=== PATIENT | male | born 1995 | race Caucasian/White ===

== ENCOUNTER 2018-12-06 16:12 | Emergency (ER) | payer BC ==
--- NOTE | 2018-12-06 16:26 | Emergency Department Record ---
History of Present Illness - General Chief Complaint: Mental health evaluation Stated Complaint: PSYCH EVAL Time Seen by Provider: 12/06/18 16:20 Source: Patient, Police Mode of Arrival: Ambulatory Limitations: No limitations - History of Present Illness Initial Comments: 23 yo male presents with law enforcement. He states he has been diagnosed with judson in the past. He states he is compliant with his medications. The officer accompanying the patient reports the patient was talking rapidly, appeared to rapidly change his thoughts, spoke of seeing or talking to god. The patient denies being suicidal. He did states his name was Obdulio Dyson on arrival. The patient has a diagnosis of Bipolar with schizophrenia per the mother. He has multiple admissions with methodist delusions. He acts out, states he is Obdulio Dyson or a white supremacist. He states he wants to kill demons. He was admitted last week. His symptoms stated quickly after getting home. Historically if he drinks or does drugs this will spiral him into episodes of the delusions. MD Complaint: Other -: Hour(s) Associated Psychiatric Symptoms: Delusions, Racing thoughts History of same: Yes Quality: Other Improves With: None Associated Symptoms: Denies other symptoms Treatments Prior to Arrival: Physical restraints (Presents in handcuffs) - [place] Coma Scale Eye Response: (4) Open spontaneously Motor Response: (6) Obeys commands Verbal Response: (5) Oriented [place] Total: 15 - Related Data Home Medications Medication Instructions Recorded Confirmed Last Taken Divalproex Sodium [Depakote] 500 mg PO BID 12/06/18 12/06/18 Unknown Escitalopram Oxalate [Lexapro] 20 mg PO DAILY 12/06/18 12/06/18 Unknown Allergies Allergy/AdvReac Type Severity Reaction Status Date / Time No Known Drug Allergies Allergy Verified 12/06/18 19:02 Review of Systems Constitutional: Denies: Chills, Fever, Malaise, Night sweats, Weakness Eyes: Denies: Eye discharge, Eye pain, Photophobia, Vision change ENT: Denies: Congestion, Throat pain Respiratory: Denies: Cough, Dyspnea, Hemoptysis, Stridor, Wheezes Cardiovascular: Denies: Chest pain, Palpitations, Syncope Endocrine: Denies: Fatigue Gastrointestinal: Denies: Abdominal pain, Diarrhea, Nausea, Vomiting Genitourinary: Denies: Dysuria, Frequency, Hematuria Musculoskeletal: Denies: Arthralgia, Back pain, Myalgia, Neck pain Skin: Denies: Bruising, Change in color, Rash Neurological: Denies: Headache, Numbness, Weakness Psychiatric: Reports: Other (Delusions he is Kiel). Denies: Auditory hallucinations, Homicidal thoughts, Suicidal thoughts, Visual hallucinations Hematological/Lymphatic: Denies: Easy bleeding, Easy bruising, Swollen glands Physical Exam - General General Appearance: Alert, Oriented x3, Cooperative, No acute distress Limitations: No limitations - Head Head exam: Atraumatic, Normocephalic, Normal inspection - Eye Eye exam: Normal appearance, PERRL. negative: Conjunctival injection, Scleral icterus - ENT ENT exam: Normal exam Ear exam: Normal external inspection Nasal Exam: Normal inspection Mouth exam: Normal external inspection - Neck Neck exam: Normal inspection - Respiratory Respiratory exam: Normal lung sounds bilaterally. negative: Respiratory distress - Cardiovascular Cardiovascular Exam: Regular rate, Normal rhythm, Normal heart sounds - GI/Abdominal GI/Abdominal exam: Soft. negative: Tenderness - Neurological Neurological exam: Alert, Normal gait. negative: Altered, Motor sensory deficit - Psychiatric Psychiatric exam: Normal affect, Normal mood, Other (Calm at the time of initial interview). negative: Agitated, Anxious, Depressed, Flat affect, Homicidal ideation, Manic, Suicidal ideation - Skin Skin exam: Dry, Intact, Normal color, Warm Course - Reevaluation(s) Reevaluation #1: 12/06/18 17:14 The mother filed an application due to the delusions of being Kiel, attacking demons 12/06/18 17:29 The labs were reviewed The toxicology screens are negative The alcohol is negative Due to his delusions of being Kiel without insight he is a danger to self and possibly others. A Certification for psychiatric evaluation was completed The patient was advised of the process He is medically cleared 12/06/18 18:43 The patient was accepted to [facility] for admission 12/06/18 18:54 The patient has been calm until now. He has had an outburst of brief yelling then calms. He will be given Zyprexa now and monitor for medication effect prior to transfer. Medical Decision Making - Lab Data Result diagrams: 12/06/18 16:45 12/06/18 16:45 Disposition Disposition: Transfer Clinical Impression: Bipolar disorder, Delusions Disposition: Psychiatric Hospital Transfer To: [facility] Reason For Transfer: Delusions, Psychosis Accepting Physician: [facility] Time Discussed w/Accepting Physician: 18:30 Condition: (2) Stable Forms: Patient Portal Access Time of Disposition: 17:31 Quality - Quality Measures Quality Measures: N/A - Blood Pressure Screening Does Patient Have Any of the Following: No Blood Pressure Classification: Hypertensive Reading Systolic Measurement: 162 Diastolic Measurement: 78 Screening for High Blood Pressure: < Pre-Hypertensive BP, F/U Documented > [ G8950] Pre-Hypertensive Follow-up Interventions: Referral to alternative/primary care provider.
[2018-12-06 16:52] LABS: HEMOGLOBIN 16.8 gm/dl (14.0-18.0); RED BLOOD COUNT 5.33 M/uL (4.40-5.70); WHITE BLOOD COUNT W/O DIFF 13.5 K/uL (4.2-12.2)
[2018-12-06 16:53] LABS: BASO % 0.2 % (0-6); GRAN % 77.7 % (47-80); LYMPH % 14.9 % (16-45); MEAN CELL VOLUME 90.1 fl (81-97); MEAN CORPUSCULAR HEMOGLOBIN 31.5 pg (27-33); MEAN PLATELET VOLUME 10.2 fl (7.4-10.4); MONO % 6.2 % (0-9); PLATELET COUNT 301 K/uL (130-400); RED CELL DISTRIBUTION WIDTH 12.6 % (11.5-14.5)
[2018-12-06 17:10] LABS: BLOOD UREA NITROGEN 19 mg/dL (6-20); CREATININE 0.7 mg/dL (0.7-1.2); EST GLOMERULAR FILTRATION RATE > 60 mL/min; TOTAL PROTEIN 7.6 g/dL (6.6-8.7)
[2018-12-06 17:11] LABS: GLUCOSE,RANDOM 147 mg/dL (74-109)
[2018-12-06 17:16] LABS: ACETAMINOPHEN < 5.0 ug/mL (10.0-30.0); ALB/GLOB RATIO 1.4 (1.1-1.8); ALBUMIN 4.4 g/dL (4.0-5.0); ALKALINE PHOSPHATASE 80 U/L (40-129); ALT/SGPT 33 U/L (<41); AST/SGOT 20 U/L (10.0-50.0); SALICYLATE < 0.3 mg/dL (2.8-20)
[2018-12-06 17:20] LABS: AMPHETAMINE SCREEN URINE NOT DETECTED; BARBITURATE SCREEN URINE NOT DETECTED; BENZODIAZEPINE SCREEN URINE NOT DETECTED; COCAINE SCREEN URINE NOT DETECTED; METHADONE SCREEN URINE NOT DETECTED; METHAMPHETAMINE SCREEN NOT DETECTED; OPIATE SCREEN URINE NOT DETECTED; OXYCODONE SCREEN URINE NOT DETECTED; PHENCYCLIDINE SCREEN URINE NOT DETECTED; PROPOXYPHENE SCREEN URINE NOT DETECTED; THC SCREEN URINE NOT DETECTED; TRICYCLIC ANTIDEPRESSANT SCRN NOT DETECTED
[2018-12-06 17:25] LABS: THYROID STIMULATING HORMONE 0.58 uIU/mL (0.270-4.20)
[2018-12-06] MEDS ORDERED: LORAZEPAM 0.5 MG TABLET PO ONE (18:52)
[2018-12-06] MEDS ORDERED: OLANZAPINE 5MG TABLET PO SCH (19:00)
[2018-12-06] MEDS: OLANZAPINE 5MG TABLET PO ONE (19:03)
== END 2018-12-06 19:34 ==
LOC: ER 16:12
DX: F31.2 Bipolar disorder, current episode manic severe with psychotic features (principal)
CPT/HCPCS: 99285 ×2; 85025; 80053; 84443; 80305; 80164; G0480 ×3; 80320; 80329

== ENCOUNTER 2019-08-17 21:44 | Emergency (ER) | payer BC ==
--- NOTE | 2019-08-17 21:56 | Emergency Department Record ---
History of Present Illness - General Chief Complaint: Suicidal thoughts Stated Complaint: SUICIDAL THOUGHTS Time Seen by Provider: 08/17/19 21:45 Source: Patient Mode of Arrival: Ambulatory Limitations: No limitations - History of Present Illness Initial Comments: 23 yo male presents to ED for evaluation of thoughts of self harm as well as thoughts of wanting to harm others. Patient denies specific plan. Patient reports "I need to get my life figured out, and my medications aren't working". Patient does report a history of Bipolar disorder treated with Zyprexa, does have a psychiatrist that he has not seen in several months. Patient denies self harm or ingestion on examination. MD Complaint: Suicidal ideation -: Days(s) Associated Psychiatric Symptoms: Homicidal ideation, Suicidal ideation History of same: Yes Quality: Constant Improves With: None Worsens With: None Associated Symptoms: Denies other symptoms Treatments Prior to Arrival: None - [place] Coma Scale Eye Response: (4) Open spontaneously Motor Response: (6) Obeys commands Verbal Response: (5) Oriented [place] Total: 15 - Related Data Home Medications Medication Instructions Recorded Confirmed Last Taken Olanzapine [Zyprexa] 20 mg PO DAILY 08/17/19 08/17/19 08/17/19 Allergies Allergy/AdvReac Type Severity Reaction Status Date / Time No Known Drug Allergies Allergy Verified 12/06/18 19:02 Review of Systems Constitutional: Denies: Chills, Fever, Malaise, Night sweats Eyes: Denies: Eye discharge, Eye pain ENT: Denies: Congestion, Ear pain, Epistaxis Respiratory: Denies: Cough, Dyspnea Cardiovascular: Denies: Chest pain, Dyspnea on exertion Endocrine: Denies: Fatigue, Heat or cold intolerance Gastrointestinal: Denies: Abdominal pain, Nausea, Vomiting Genitourinary: Denies: Incontinence, Retention Musculoskeletal: Denies: Arthralgia, Back pain Skin: Denies: Bruising, Change in color Neurological: Denies: Abnormal gait, Confusion, Headache, Seizure Psychiatric: Reports: Homicidal thoughts, Suicidal thoughts. Denies: Anxiety, Auditory hallucinations Hematological/Lymphatic: Denies: Anemia, Blood Clots Past Medical History - SOCIAL HISTORY Smoking Status: Former smoker Drug Use: None - RESPIRATORY Hx Respiratory Disorders: No - CARDIOVASCULAR Hx Cardio Disorders: No - NEURO Hx Neuro Disorders: No - GI Hx GI Disorders: No - Hx Genitourinary Disorders: No - ENDOCRINE Hx Endocrine Disorders: No - MUSCULOSKELETAL Hx Musculoskeletal Disorders: No - PSYCH Hx Psych Problems: Yes Hx Depression: Yes ([place]) - HEMATOLOGY/ONCOLOGY Hx Hematology/Oncology Disorders: No Physical Exam - General General Appearance: Alert, Oriented x3, Cooperative, No acute distress Limitations: No limitations - Head Head exam: Atraumatic, Normocephalic, Normal inspection Head exam detail: negative: Abrasion, Contusion, Villaloobs's sign, General tenderness, Hematoma, Laceration - Eye Eye exam: Normal appearance. negative: Conjunctival injection, Periorbital swelling, Periorbital tenderness, Scleral icterus - ENT Ear exam: negative: Auricular hematoma, Auricular trauma Nasal Exam: negative: Active bleeding, Discharge, Dried blood, Foreign body Mouth exam: negative: Drooling, Laceration, Muffled voice, Tongue elevation - Neck Neck exam: Normal inspection. negative: Meningismus, Tenderness - Respiratory Respiratory exam: Normal lung sounds bilaterally. negative: Rales, Respiratory distress, Rhonchi, Stridor - Cardiovascular Cardiovascular Exam: Regular rate, Normal rhythm, Normal heart sounds - GI/Abdominal GI/Abdominal exam: Soft. negative: Rebound, Rigid, Tenderness - Rectal Rectal exam: Deferred - exam: Deferred - Extremities Extremities exam: Normal inspection. negative: Pedal edema, Tenderness - Back Back exam: Denies: CVA tenderness (R), CVA tenderness (L) - Neurological Neurological exam: Alert, Normal gait, Oriented X3 - Psychiatric Psychiatric exam: Depressed, Flat affect, Homicidal ideation, Suicidal ideation - Skin Skin exam: Normal color. negative: Abrasion Type of lesion: negative: abrasion Course - Reevaluation(s) Reevaluation #1: 08/17/19 21:55 Patient was seen and examined Will initiate medical clearance for psychiatric placement. Reevaluation #2: 08/17/19 22:38 Laboratory studies were reviewed and appear grossly unremarkable for an acute process. UA pending at this time. Reevaluation #3: 08/17/19 23:00 UDS positive for cannibis UDS are otherwise negative. Will initiate transfer for psychiatric evaluation. Reevaluation #4: 08/18/19 05:40 Multiple psychiatric facilities have been contacted, awaiting to hear back from several in the morning as many facilities are currently full. Patient is sleeping on re-examination at this time. Reevaluation #5: 08/18/19 06:12 Patient has been accepted to [facility], able to be transported around 10:30 this morning. 08/18/19 07:19 Case was discussed with oncoming provider, will assume care pending transfer isabella und 10:30 this morning. Medical Decision Making - Lab Data Result diagrams: 08/17/19 22:00 08/17/19 22:00 Disposition Disposition: Transfer Clinical Impression: Suicidal ideation, Bipolar 1 disorder Disposition: Psychiatric Hospital Transfer To: [facility] Reason For Transfer: Psychiatric evaluation Accepting Physician: Nelson Time Discussed w/Accepting Physician: 06:12 Condition: (2) Stable Forms: Patient Portal Access Time of Disposition: 06:13 Quality - Quality Measures Quality Measures: N/A - Blood Pressure Screening Does Patient Have Any of the Following: No Blood Pressure Classification: Pre-Hypertensive BP Reading Systolic Measurement: 125 Diastolic Measurement: 81 Screening for High Blood Pressure: < Pre-Hypertensive BP, F/U Documented > [G8950] Pre-Hypertensive Follow-up Interventions: Referral to alternative/primary care provider.
[2019-08-17 22:16] LABS: ABSOLUTE NEUTROPHIL COUNT 4.56; BASO % 0.2 % (0-6); EOS % 2.2 % (0-6); GRAN % 52.2 % (47-80); HEMATOCRIT 46.9 % (42.0-52.0); HEMOGLOBIN 16.6 gm/dl (14.0-18.0); LYMPH % 38.8 % (16-45); MEAN CELL VOLUME 88.3 fl (81-97); MEAN CORPUSCULAR HEMOGLOBIN 31.3 pg (27-33); MEAN CORPUSCULAR HGB CONC 35.4 g/dl (32-36); MEAN PLATELET VOLUME 10.1 fl (7.4-10.4); MONO % 6.6 % (0-9); PLATELET COUNT 295 K/uL (130-400); RED BLOOD COUNT 5.31 M/uL (4.40-5.70); RED CELL DISTRIBUTION WIDTH 12.2 % (11.5-14.5); WHITE BLOOD COUNT W/O DIFF 8.7 K/uL (4.2-12.2)
[2019-08-17 22:31] LABS: BLOOD UREA NITROGEN 17 mg/dL (6-20); CREATININE 0.9 mg/dL (0.7-1.2); EST GLOMERULAR FILTRATION RATE > 60 mL/min; TOTAL PROTEIN 7.7 g/dL (6.6-8.7)
[2019-08-17 22:33] LABS: ALCOHOL < 0.010 g/dL (0-0.010); GLUCOSE,RANDOM 101 mg/dL (74-109)
[2019-08-17 22:36] LABS: ALB/GLOB RATIO 1.7 (1.1-1.8); ALBUMIN 4.8 g/dL (4.0-5.0); ALKALINE PHOSPHATASE 79 U/L (40-129); ALT/SGPT 33 U/L (<41); AST/SGOT 20 U/L (10.0-50.0)
[2019-08-17 22:37] LABS: ACETAMINOPHEN < 5.0 ug/mL (10.0-30.0); SALICYLATE < 0.3 mg/dL (2.8-20)
[2019-08-17 22:48] LABS: THYROID STIMULATING HORMONE 1.45 uIU/mL (0.270-4.20)
[2019-08-17 22:56] LABS: AMPHETAMINE SCREEN URINE NOT DETECTED; BARBITURATE SCREEN URINE NOT DETECTED; BENZODIAZEPINE SCREEN URINE NOT DETECTED; COCAINE SCREEN URINE NOT DETECTED; METHADONE SCREEN URINE NOT DETECTED; METHAMPHETAMINE SCREEN NOT DETECTED; OPIATE SCREEN URINE NOT DETECTED; OXYCODONE SCREEN URINE NOT DETECTED; PHENCYCLIDINE SCREEN URINE NOT DETECTED; PROPOXYPHENE SCREEN URINE NOT DETECTED; THC SCREEN URINE DETECTED; TRICYCLIC ANTIDEPRESSANT SCRN NOT DETECTED
== END 2019-08-18 11:17 ==
LOC: ER 21:44
DX: R45.851 Suicidal ideations (principal); F31.9 Bipolar disorder, unspecified
CPT/HCPCS: 80053; 80305; 80320; 80329; 84443; 85025; 99285